=== PATIENT | female | born 1955 | race Caucasian/White ===

== ENCOUNTER → 2021-02-12 13:42 | Outpatient (CLI) | payer MEDICARE, SELFPAY ==
--- NOTE | ~2021-02-12 | XR_ITS ---
EXAMINATION: XR chest 2V DATE: 02/12/2021 13:54 INDICATION: Cough, unspecified. Shortness of breath. TECHNIQUE: Frontal and lateral views of the chest were obtained. COMPARISON: None. FINDINGS: The chest demonstrates clear lungs without pneumonia, pleural effusion, or pneumothorax. Th e heart size is normal. There are surgical clips in left breast. IMPRESSION: 1. No acute cardiopulmonary disease. Reviewed, dictated and finalized at location A. C EDUCATOR
== END ==
PROVIDERS: PCP Family Medicine; Visit Provider Nurse Practitioner Family
DX: R05.9 Cough, unspecified (principal)
CPT/HCPCS: 71046

== ENCOUNTER 2021-08-13 00:20 | Day surgery (SDC) | payer MEDICARE, SELFPAY ==
[2021-07-25 13:33] VITALS: BMI 31.2
[2021-08-13 08:17] VITALS: BP 144/95; PULSE 70; RESP 19; TEMP 36.3; O2SAT 100
[2021-08-13] MEDS: LACTATED RINGERS 1,000 ML 150 ML IV CONT ×2 (08:33→09:59)
--- NOTE | 2021-08-13 09:10 | WPDANESEPPF ---
Anes - Initial Pre Proc Eval Procedure: Operation Date: 08/13/21 10:00 Proposed Procedures p Screening Colonoscopy - Estevan Arnett MD Date/Time: 08/13/21 09:10 Surgeon: Estevan Arnett MD Pre Op Diagnosis: neoplasm screening Patient Data Age: 66 Gender: F Height: 1.6 m Weight: 79.3 kg Last Vital Signs Temp 36.3 C L 08/13/21 08:17 Pulse 70 08/13/21 08:17 Resp 19 08/13/21 08:17 BP 144/95 H 08/13/21 08:17 Pulse Ox 100 08/13/21 08:17 O2 Del Method Room Air 08/13/21 08:17 Allergies Allergy/AdvReac Type Severity Reaction Status Date / Time No Known Allergies Allergy Verified 08/13/21 08:16 Home Medications Medication Instructions Recorded Confirmed Type clobetasol 0.05 % topical cream 1 applic topical BID 12/31/20 07/25/21 History tamoxifen 20 mg tablet 20 mg PO DAILY 12/31/20 07/25/21 History atorvastatin 20 mg tablet 20 mg PO DAILY #90 tabs 04/07/21 07/25/21 Rx propranolol 60 mg capsule,24 60 mg PO DAILY #90 caps 04/07/21 07/25/21 Rx hr,extended release diclofenac sodium 50 mg 50 mg PO BID PRN Pain 07/22/21 07/25/21 History tablet,delayed release oxybutynin chloride 5 mg tablet 5 mg PO BID #60 tabs 07/22/21 07/25/21 Rx Patient hx anesthesia problems: none Family hx anesthesia problems: none Results Review: All pre-operative results and documents have been reviewed as part of the pre-operative evaluation. [facility] Past Medical History Medical History Anemia BMI 31.0-31.9,adult BMI greater than 30 Endoarteritis Hyperlipidemia Lichen sclerosus Screen for colon cancer Serous otitis media Squamous acanthoma of right upper extremity Tremor Trochanteric bursitis of right hip Surgical History Surgical History History of breast biopsy History of bunionectomy History of colonoscopy History of D&C History of hysterectomy History of lumpectomy of left breast History of Mohs surgery for squamous cell carcinoma of skin History of tonsillectomy and adenoidectomy Family History Family History Father , no autopsy No problems noted. Mother Cerebrovascular accident Sibling , aneurysm No problems noted. 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 Gender identity (if verbalized by the patient): Female Sexual Orientation (if Verbalized by the Patient): Straight or Heterosexual Spiritual care concerns: No Agree to blood products: Yes Anes - Eval Final PreProcedure Day of Procedure 08/13/21 09:10 Patient weight: obese Lungs: clear to auscultation Airway: Mallampati scale class II Neurological: alert and oriented Last oral intake: >/= 8 hours ASA classification: III Emergent: no Anesthetic plan: proceed Anesthesia type and monitoring: general GIVS and standard monitoring Results Review: All pre-operative results and documents have been reviewed as part of the pre-operative evaluation. Informed Consent: The patient's anesthetic plan and its attendant risks and benefits were discussed with the patient/family/POA. Questions were solicited and answers provided to the satisfaction of the patient/family/POA.
--- NOTE | 2021-08-13 09:34 | PM.HPGS ---
History of Present Illness History of Present Illness Consent: Risks, benefits, and alternatives have been discussed and questions answered. Patient agrees to proceed with procedure. Chief complaint: neoplasm screening Narrative: Magaly Villa is a 66 year old female with last colonoscopy 2016, brother had colon cancer Review of Systems Constitutional: Constitutional: Denies headache(s) and Denies weakness Eyes: Eyes: Denies blurry vision ENT: Reports Normal hearing present, Denies headache(s) and Denies neck pain Cardiovascular: Cardiovascular: Denies chest pain and Denies dyspnea Respiratory: Respiratory: Denies dyspnea Gastrointestinal: Gastrointestinal: Reports no additional gastrointestinal complaints Genitourinary: Genitourinary: Denies dysuria Musculoskeletal: Musculoskeletal: Denies neck pain Integumentary/Breasts: Skin/Breast: Denies dry skin Neurologic: Reports Normal hearing present, Denies headache(s) and Denies weakness Psychiatric: Psychiatric: Denies anxiety Endocrine: Endocrine: Denies change in body appearance Hematologic/Lymphatic: Hematologic/Lymphatic: Denies easy bleeding Allergic/Immunologic: Allergic/Immunologic: Denies urticaria PMFSH Past Medical History Medical History (Updated 08/13/21 @ 09:34 by Estevan Arnett MD) Anemia BMI 31.0-31.9,adult BMI greater than 30 Endoarteritis Family history of colon cancer Hyperlipidemia Lichen sclerosus Screen for colon cancer Serous otitis media Squamous acanthoma of right upper extremity Tremor Trochanteric bursitis of right hip Surgical History Surgical History History of breast biopsy History of bunionectomy History of colonoscopy History of D&C History of hysterectomy History of lumpectomy of left breast History of Mohs surgery for squamous cell carcinoma of skin History of tonsillectomy and adenoidectomy Family History Family History Father , no autopsy No problems noted. Mother Cerebrovascular accident Sibling , aneurysm No problems noted. 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 Gender identity (if verbalized by the patient): Female Sexual Orientation (if Verbalized by the Patient): Straight or Heterosexual Spiritual care concerns: No Agree to blood products: Yes Meds Home Medications and Allergies Home Medications Medication Instructions Recorded Confirmed Type clobetasol 0.05 % topical cream 1 applic topical BID 12/31/20 07/25/21 History tamoxifen 20 mg tablet 20 mg PO DAILY 12/31/20 07/25/21 History atorvastatin 20 mg tablet 20 mg PO DAILY #90 tabs 04/07/21 07/25/21 Rx propranolol 60 mg capsule,24 60 mg PO DAILY #90 caps 04/07/21 07/25/21 Rx hr,extended release diclofenac sodium 50 mg 50 mg PO BID PRN Pain 07/22/21 07/25/21 History tablet,delayed release oxybutynin chloride 5 mg tablet 5 mg PO BID #60 tabs 07/22/21 07/25/21 Rx Allergies Allergy/AdvReac Type Severity Reaction Status Date / Time No Known Allergies Allergy Verified 08/13/21 08:16 Vital Signs Vital Signs - 24 hr 08/13/21 08:17 Temperature 97.4 F L Pulse Rate 70 Respiratory Rate 19 Blood Pressure 144/95 H Pulse Oximetry 100 Oxygen Delivery Room Air Exam Const: General: comfortable and no acute distress HENMT: General nose exam: Normal nares present Eyes: General: appearanc
[2021-08-13 10:03] VITALS: BP 96/58; PULSE 68; RESP 20; O2SAT 99
[2021-08-13 10:13] VITALS: BP 102/66; PULSE 63; RESP 17; O2SAT 98
[2021-08-13 10:23] VITALS: BP 129/62; PULSE 62; RESP 16; O2SAT 99
== END 2021-08-13 10:32 | disposition home or self-care (01) ==
PROVIDERS: PCP Family Medicine; Visit Provider Internal Medicine Gastroenterology
PROC: 0DJD8ZZ Inspection of Lower Intestinal Tract, Via Natural or Artificial Opening Endoscopic (ICD-10-PCS; CPT 45378; principal; 2021-08-13 10:00)
DX: Z12.11 Encounter for screening for malignant neoplasm of colon (principal); K57.30 Diverticulosis of large intestine without perforation or abscess without bleeding; K64.8 Other hemorrhoids; Z80.0 Family history of malignant neoplasm of digestive organs; D64.9 Anemia, unspecified; E78.5 Hyperlipidemia, unspecified; L90.0 Lichen sclerosus et atrophicus; Z85.828 Personal history of other malignant neoplasm of skin; E66.9 Obesity, unspecified; Z68.31 Body mass index [BMI] 31.0-31.9, adult
CPT/HCPCS: G0105; J2001; J2704; J7120

== ENCOUNTER 2022-01-23 18:00 | Emergency (ER) | payer MEDICARE, SELFPAY ==
[2022-01-23 19:07] VITALS: BP 143/87; PULSE 79; RESP 18; TEMP 36.3; O2SAT 100
--- NOTE | 2022-01-23 19:32 | ED.FEMALEGU ---
HPI - Female Genitourinary General Chief complaint: Urogenital-Female Stated complaint: Skin Itching Time Seen by Provider: 01/23/22 19:15 Source: patient Mode of arrival: ambulatory Limitations: no limitations History of Present Illness HPI Narrative: [place] is a 66-year-old female patient presenting to the clinic today with complaints vaginal itching for some time now. She reports that she is supposed to be seeing her urologist on for a cystoscopy. Reports that she has had some vaginal itching with mild drainage. She has been scratching herself for all. Does have a history of lichen sclerosis. states she is having pain with urination as the urine touches outer vagina Related Data Home Medications Medication Instructions Recorded Confirmed tamoxifen 20 mg tablet 20 mg PO DAILY 12/31/20 01/23/22 Allergies Allergy/AdvReac Type Severity Reaction Status Date / Time No Known Allergies Allergy Verified 10/16/21 13:25 Review of Systems Review of Systems: Pertinent positives per HPI. Patient denies any fever, chills, rash, headache, visual changes, dizziness, cough, runny nose, sore throat, shortness of breath, chest pain, palpitations, nausea, vomiting, diarrhea, constipation, abdominal pain, or any urinary issues. [facility] Past Medical History Medical History Anemia BMI 31.0-31.9,adult BMI greater than 30 Elevated blood pressure reading in office without diagnosis of hypertension Endoarteritis Family history of colon cancer Hyperlipidemia Lichen sclerosus Screen for colon cancer Serous otitis media Squamous acanthoma of right upper extremity Tremor Trochanteric bursitis of right hip Surgical History Surgical History History of breast biopsy History of bunionectomy History of colonoscopy History of D&C History of hysterectomy History of lumpectomy of left breast History of Mohs surgery for squamous cell carcinoma of skin History of tonsillectomy and adenoidectomy Family History Family History Father , no autopsy No problems noted. Mother Cerebrovascular accident Sibling , aneurysm No problems noted. 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 There is no relevant family history pertinent to the patient complaint. Exam Narrative: General: Well-developed, well nourished, in no apparent distress Head: Normocephalic, atraumatic. Cardio: Regular rate and rhythm, s1 and s2 normal, no murmur appreciated. Resp: Clear to auscultation bilaterally, no rhonchi, rales, wheezing or rubs. Abdomen: Soft, pliable, bowel sounds present in all quadrants, non-tender to palpation, no CVAT tenderness. : Pelvic exam performed with (Amie) at bedside. Verbal consent obtained from patient. Normal external female genitalia with excoriation and redness with clear whitish discharge near the perineum and scabbing noted to the external genitalia from itching Urinary meatus: patent without discharge, Vagina: No lesions, masses, or discharge, Course Cou
== END 2022-01-23 19:42 | disposition home or self-care (01) ==
PROVIDERS: Emergency Provider Nurse Practitioner Family; PCP Family Medicine
DX: B37.31 Acute candidiasis of vulva and vagina (principal); E78.5 Hyperlipidemia, unspecified
CPT/HCPCS: 81003; 87086; 99213; G0463

== ENCOUNTER → 2022-03-17 13:50 | Outpatient (CLI) | payer MEDICARE, SELFPAY ==
--- NOTE | ~2022-03-17 | XR_ITS ---
Clinical Indication: Chronic cough PA and lateral views of the chest: Comparison: 02/12/2021 Findings: The lungs are clear, without evidence of focal consolidation or pleural effusion. Cardiome diastinal silhouette is within normal limits. Bones and soft tissues are unremarkable. Impression: Normal chest. Reviewed, dictated and finalized at [facility]. LATED PROGRAM MANAGER Impression: Normal chest.
== END ==
PROVIDERS: PCP Family Medicine; Visit Provider Family Medicine
DX: R05.3 Chronic cough (principal)
CPT/HCPCS: 71046

== ENCOUNTER 2023-02-25 09:38 | Outpatient (CLI) | payer MEDICARE, SELFPAY ==
--- NOTE | 2023-03-15 16:25 | WPDSLEEPSTUD ---
Sleep Study Date of Study: 02/25/23 Ordering Provider: Angel Delgado MD Interpreting Physician: Ruthann Parikh DO Sleep Study Type: Split Polysomnogram Height: 1.6 m Weight: 82.1 kg Body Mass Index: 32.1 Neck Circumference (inches): 15 [place]: 9 Reason for Sleep Study Snoring, daytime hypersomnia Sleep History The patient is a 68-year-old female with anemia, endoarteritis, hyperlipidemia, lichen sclerosis, tremor and hypersomnia that had a sleep study ordered by her primary care physician for evaluation of sleep apnea. The patient rarely awakens from sleep short of breath. He rarely awakens at night with heartburn, belching or cough. She frequently snores and is constantly loud enough others complain. She rarely has trouble sleeping when she has a cold. She denies waking up gasping for air throughout the night. She denies having breathing problems at night observed by herself or others. She occasionally sweats excessively at night. She occasionally has heart palpitations or irregular heartbeats during the night. She frequently falls asleep during the day but never while driving. She denies sleep paralysis, cataplexy and hypnagogic / hypnopompic hallucinations. She denies having trouble at school or work due to sleepiness. She denies feeling afraid of going to sleep. She occasionally has nightmares and frequently remembers her dreams. She frequently has thoughts racing through her mind. She rarely feels sad or depressed and occasionally has anxiety. She denies having muscular tension. She denies noticing parts of her body jerk. She rarely kicks during the night. She denies having crawling and aching feelings in her legs and denies having leg pain during the night. She rarely grinds her teeth during sleep and never awakens with morning jaw pain. She is rarely bothered by pain during the day but never awakened by pain during the night. She rarely wakes up feeling stiff in the morning. She denies waking up with sore or achy muscles. She denies waking up with pain in the neck, spine and other joints. She goes to bed at 10:00 p.m. on weekdays and at 10:30 p.m. on weekends. It takes her 30 minutes to fall asleep. She wakes up 2-3 times throughout the night to change positions and is usually able to fall back asleep within a few minutes. She wakes up between 6-8 a.m. on both weekdays and weekends. She typically gets 6-9 hours of sleep per night. She will stay in bed for 10 minutes after waking up in the morning. She currently lives with her . She denies consuming any caffeinated beverages within 2 hours of bedtime. She denies engaging in physical exercise before bedtime. She will read and watch television before falling asleep. She will take naps in the afternoon or the evening and they are refreshing. She consumes 3 caffeinated beverages per day. She denies tobacco, alcohol and recreational drug use. [facility] Past Medical History Medical History Acute candidiasis of vulva and vagina Anemia BMI 31.0-31.9,adult BMI greater than 30 Chills (without fever) Elevated blood pressure reading in office without diagnosis of hypertension Endoarteritis Family history of colon cancer Hyperlipidemia Lichen sclerosus Screen for colon cancer Serous otitis media Squamous acanthoma of right upper extremity Tremor Trochanteric bursitis of right hip Surgical History Surgical History History of breast biopsy History of bunionectomy History of colonoscopy History of D&C History of hysterectomy History of lumpectomy of left breast History of Mohs surgery for squamous cell carcinoma of skin History of tonsillectomy and adenoidectomy Family History Family History Father , no autopsy No problems noted. Mother Cerebrovascu
[2023-03-15 16:30] VITALS: BMI 32.1
== END 2023-02-26 06:48 | disposition home or self-care (01) ==
LOC: ANHCSM 09:39
PROVIDERS: PCP Family Medicine; Visit Provider Family Medicine
DX: G47.30 Sleep apnea, unspecified (principal)
CPT/HCPCS: 95811